=== PATIENT | female | born 1960 | race Caucasian/White ===

== ENCOUNTER 2021-12-03 14:47 | Day surgery (SDC) | payer OTHER ==
[~2021-12-03] VITALS: Ht 167.6 cm; Wt 105.5 kg
[2021-12-03] MEDS ORDERED: CYCL5TAB PO (15:15)
[2021-12-03] MEDS ORDERED: FURO40SY IM (15:15)
[2021-12-03] MEDS ORDERED: ALBU2TA PO (15:15)
[2021-12-03] MEDS ORDERED: ROSU5TAB5 PO (15:15)
[2021-12-03] MEDS ORDERED: METO200T28 PO (15:15)
[2021-12-03] MEDS ORDERED: LISI10TA22 PO (15:15)
[2021-12-03] MEDS ORDERED: METO1TAB33 PO (17:05)
[2021-12-03] MEDS ORDERED: FURO20TA2 PO (17:05)
[2021-12-03 17:13] LABS: HEMATOCRIT 39.6 % (36.0-47.0); HEMOGLOBIN 12.9 g/dl (12.0-15.5); MEAN CORPUSCULAR HEMOGLOBIN 30.4 pg (27.0-33.0); MEAN CORPUSCULAR HGB CONC 32.6 g/dl (32.0-36.5); MEAN CORPUSCULAR VOLUME 93.4 fl (80.0-96.0); PLATELET COUNT, AUTOMATED 256 10^3/uL (150-450); RED BLOOD COUNT 4.24 10^6/uL (4.00-5.40); WHITE BLOOD COUNT 9.4 10^3/uL (4.0-10.0)
[2021-12-03] MEDS ORDERED: propofoL 200 MG/20 ML VIAL As Ordered ONE (17:13)
[2021-12-03] MEDS ORDERED: LIDOCAINE 2% 100MG/5ML SDV (FOR ANES.) As Ordered ONE (17:14)
[2021-12-03] MEDS ORDERED: dexameTHASONE 4 MG/ML 1ML VIAL (J1100 PER 1MG) As Ordered ONE (17:14)
[2021-12-03] MEDS ORDERED: CYCL-707 PO (17:14)
[2021-12-03] MEDS ORDERED: ONDANSETRON 4MG 2ML VIAL As Ordered ONE (17:14)
[2021-12-03] MEDS ORDERED: MIDAZOLAM INJ 2MG/2ML VIAL (J2250 PER 1MG) As Ordered ONE (17:15)
[2021-12-03] MEDS ORDERED: fentaNYL 100 MCG/2 ML INJECTION As Ordered ONE (17:15)
[2021-12-03] MEDS ORDERED: HOME MED LIST COMPLETE! XX SCH (17:15)
[2021-12-03] MEDS ORDERED: SUCCINYLCHOLINE 100 MG/5 ML SYRINGE (J0330) As Ordered ONE (17:22)
[2021-12-03] MEDS ORDERED: ROCURONIUM BROMIDE 50 MG/5 ML VIAL As Ordered ONE (19:02)
[2021-12-03] MEDS ORDERED: PHENYLephrine 500MCG 5ML (100MCG/ML) SYRINGE As Ordered ONE (19:13)
[2021-12-03] MEDS ORDERED: PROT1TAB2 PO (19:44)
[2021-12-03 20:30] VITALS: BP 145/69
== END 2021-12-03 20:55 | disposition home or self-care (01) ==
LOC: M ED 14:47 → M SDC 14:48
PROVIDERS: ATTEND Surgery
DX: T18.128A Food in esophagus causing other injury, initial encounter (principal); I10 Essential (primary) hypertension; E78.5 Hyperlipidemia, unspecified; J45.909 Unspecified asthma, uncomplicated; Z95.0 Presence of cardiac pacemaker; K21.9 Gastro-esophageal reflux disease without esophagitis; I50.9 Heart failure, unspecified; Z79.899 Other long term (current) drug therapy; Z91.013 Allergy to seafood; Z91.018 Allergy to other foods
CPT/HCPCS: 43247; 80047; 85027; 87635; 99284; J0330; J1100; J2250; J2370; J2405; J3010